=== PATIENT | female | born 1945 | race Caucasian/White ===

== ENCOUNTER 2020-01-06 14:16 | Outpatient (CLI) | payer MEDICARE, OTHER, SELFPAY ==
--- NOTE | 2020-01-06 14:24 | MM_ITS ---
WS: [id number] BILATERAL DIGITAL SCREENING MAMMOGRAPHY WITH CAD CLINICAL INFORMATION: SCREENING HISTORY: Screening mammogram. No current complaints. COMPARISON: TECHNIQUE: Bilateral CC and MLO views. FINDINGS: The breasts are composed of heterogeneous fibroglandular density tissue, which can limit the detectio n of small underlying mass lesions. No suspicious mass, asymmetry, calcifications, or architectural d istortion. No evidence of malignancy. Punctate and lucent centered calcification left breast. MM/[id number] IMPRESSION: BI-RADS: 2-Benign FOLLOW UP: 1 Year Follow-up Recommend return to annual screening mammography.
== END 2020-01-06 14:17 | disposition home or self-care (01) ==
LOC: RADSHAW 14:21
PROVIDERS: PCP Internal Medicine; Visit Provider Internal Medicine
DX: Z12.31 Encounter for screening mammogram for malignant neoplasm of breast (principal)
CPT/HCPCS: 77067

== ENCOUNTER 2021-07-14 10:16 | Outpatient (CLI) | payer MEDICARE, OTHER, SELFPAY ==
--- NOTE | 2021-07-14 10:23 | MM_ITS ---
WS: [id number] Bilateral screening 3D tomosynthesis digital mammogram, 07/14/2021 Clinical Data: SCREENING Comparison: 01/06/2020, 10/31/2018, 08/02/2017, 05/27/2016, 04/01/2015, 12/16/2013, 11/21/2012, 09/01/2011, , 05/28/2009, 04/04/2008, 02/23/2007, 01/30/2006. Findings: The breast parenchymal pattern shows fibroglandular tissue No spiculated masses or clustered calcific ations are seen. There are no secondary signs of carcinoma. MM/[id number] Impression: 1. Negative bilateral mammogram unchanged. 2. Recommend annual screening mammograms. BIRADS: 1-Negative FOLLOW UP: 1 Year Follow-up The CAD instrument checker was used.
== END 2021-07-14 10:17 | disposition home or self-care (01) ==
LOC: RADSHAW 10:20
PROVIDERS: PCP Internal Medicine; Visit Provider Internal Medicine
DX: Z12.31 Encounter for screening mammogram for malignant neoplasm of breast (principal)
CPT/HCPCS: 77063; 77067

== ENCOUNTER 2022-08-02 09:20 | Outpatient (CLI) | payer MEDICARE, OTHER, SELFPAY ==
--- NOTE | 2022-08-02 09:33 | MM_ITS ---
WS: [id number] BILATERAL SCREENING DIGITAL TOMOSYNTHESIS MAMMOGRAM WITH CAD HISTORY: SCREENING COMPARISON: 07/14/2021, 01/06/2020 Bilateral CC and MLO views with tomosynthesis and synthetic mammography submitted. Computer aided det ection analyzed. Breast composition: There are scattered areas of fibroglandular density. No suspicious masses, microc alcifications or architectural distortion. Benign calcifications LEFT breast. MM/[place] [id number] IMPRESSION: BI-RADS: 2-Benign FOLLOW UP: 1 Year Follow-up
== END 2022-08-02 09:21 | disposition home or self-care (01) ==
LOC: RAD 09:27
PROVIDERS: PCP Internal Medicine; Visit Provider Internal Medicine
DX: Z12.31 Encounter for screening mammogram for malignant neoplasm of breast (principal)
CPT/HCPCS: 77063; 77067

== ENCOUNTER 2024-02-08 08:31 | Outpatient (CLI) | payer MEDICARE, OTHER, SELFPAY ==
--- NOTE | 2024-02-08 08:35 | MM_ITS ---
WS: [id number] VIEWS: MLO and CC views both breasts. 3D digital tomosynthesis is also included in this exam. Comparison made with prior exam of 08/02/2017, 05/27/2016, 04/01/2015, 12/16/2013, 11/21/2012, 09/01/2011, , 05/28/2009, 04/04/2019 , 01/30/2006, 08/02/2022, 07/14/2021, 01/06/2020, 10/31/2018.. Findings: The breasts are heterogeneously dense, which may obscure small masses. No sign of suspicious mass, tumor calcification or architectural distortion. MM/MM scr [place] tomosynthesis [id number] Impression: BI-RADS: 2 - Benign FOLLOW-UP: 1 Year Follow-up This mammogram was also analyzed by the Computer Aided Detection System R2 Imag e Public Affairs Specialist.
== END 2024-02-08 08:32 | disposition home or self-care (01) ==
LOC: RAD 08:33
PROVIDERS: PCP Internal Medicine; Visit Provider Internal Medicine
DX: Z12.31 Encounter for screening mammogram for malignant neoplasm of breast (principal)
CPT/HCPCS: 77063; 77067